=== PATIENT | male | born 1940 | race Caucasian/White ===

== ENCOUNTER → 2016-08-22 | Outpatient (CLI) | payer MEDICARE, OTHER ==
--- NOTE | 2016-08-23 13:56 | RAD ---
History: Renal stone. KUB: Single supine view is obtained. This study is correlated with a KUB from 01/2016. Fragmented 13 mm calcification is seen overlying the mid upper pole of the left kidney. Suspected vascular calcifications are seen overlying the right renal outline. No calculi are shown along the expected course of the ureters. Faint radiopacity overlying the right hemisacrum may be vascular. Directed ultrasound can be obtained if obstruction is questioned clinically. The patient is osteopenic. Bowel gas pattern is normal. IMPRESSION: Fragmented calcifications, 13 mm transverse diameter overlie the midportion of the left kidney and may represent a left renal stone. Directed ultrasound can be obtained if obstruction is questioned. Electronically signed by: Jessica Olivares MD 08/23/2016 1:55 PM CDT
== END ==
LOC: LAB.O 15:04
PROVIDERS: ATTEND Urology
DX: N20.0 Calculus of kidney (principal); R97.20 Elevated prostate specific antigen [PSA]; E29.1 Testicular hypofunction

== ENCOUNTER → 2017-01-16 | Outpatient (CLI) | payer MEDICARE, OTHER | LOC: GMAB 11:26 | PROVIDERS: ATTEND Family Medicine | DX: I10 Essential (primary) hypertension (principal); Z12.5 Encounter for screening for malignant neoplasm of prostate | CPT/HCPCS: 84443; G0103 ==

== ENCOUNTER → 2017-03-05 | Outpatient (CLI) | payer MEDICARE, OTHER ==
--- NOTE | 2017-03-05 12:19 | US ---
EXAM DESCRIPTION: Carotid Duplex: Ultrasound. CLINICAL HISTORY: CAROTID ARTERY STENOSIS COMPARISON: None. TECHNIQUE: Transcutaneous scanning utilizing 2-dimensional and Doppler modes to evaluate the bilateral carotid systems and vertebral arteries. Percentage of diameter of stenosis or no stenosis recorded will be based upon NASCET criteria. FINDINGS: Peak systolic/end diastolic (CM-Sec) CCA Right 82/16 Left 72/13. ICA Right proximal 46/15, mid 49/12. Left proximal 54/13, Distal 50/21. Vertebral Right 41/14 Left 28/8. ECA (PS Only) Right 61 left 58. ICA/CCA peak systolic ratio: Right 0.6 Left 0.7 ICA/CCA end diastolic ratio: Right 0.8 Left 1.0 Vertebral arteries: antegrade flow. Comments: Atherosclerotic calcifications in the bilateral carotid bifurcations. Spectral broadening in the mid and distal right ICA. Area stenosis CCA bulb 32%; diameter stenosis 35%. Area stenosis of proximal right ICA 20%; diameter stenosis 25%. Area stenosis of left CCA bulb 34%; diameter stenosis 43%. IMPRESSION: 1. Doppler evaluation of the bilateral carotid systems and vertebral arteries shows no hemodynamically significant stenoses. 2. No significant amount of plaque seen in the carotid arteries bilaterally. Bilateral vertebral arteries showed antegrade-cephalad flow. Electronically signed by: Raymundo Sanderson MD 03/05/2017 12:18 PM CDT
== END | disposition home or self-care (01) ==
LOC: US 10:50
PROVIDERS: ATTEND Family Medicine
DX: I65.23 Occlusion and stenosis of bilateral carotid arteries (principal)

== ENCOUNTER → 2017-03-08 | Outpatient (CLI) | payer MEDICARE, OTHER | LOC: SL 20:30 | PROVIDERS: ATTEND Family Medicine | DX: G47.33 Obstructive sleep apnea (adult) (pediatric) (principal); F51.09 Other insomnia not due to a substance or known physiological condition; G47.69 Other sleep related movement disorders ==

== ENCOUNTER → 2017-08-20 | Outpatient (CLI) | payer MEDICARE, OTHER ==
--- NOTE | 2017-08-20 17:36 | US ---
EXAM DESCRIPTION: Venous,Lower Extremity LT CLINICAL HISTORY: PAIN IN LEFT LEG COMPARISON: None Available. TECHNIQUE: Left lower extremity venous duplex FINDINGS: Doppler evaluation of the left lower extremity deep veins was performed. Normal color flow is seen in the common femoral, superficial femoral, profunda femoral and greater saphenous veins. Normal flow is seen in the popliteal vein and veins below the knee in the calf. Normal deep venous compressibility and flow augmentation. Superficial vein of the anterior left calf appears to be thrombosed (varicose vein) in the subcutaneous fat. Patient is apparently tender in this area. IMPRESSION: Thrombosed superficial varicose vein of the anterior left lower leg. Negative for evidence of deep venous thrombosis on left lower extremity venous Doppler sonogram. Electronically signed by: Marcelo Crabtree MD 08/20/2017 5:35 PM CDT
== END | disposition home or self-care (01) ==
LOC: US 11:06
PROVIDERS: ATTEND Family Medicine
DX: M79.605 Pain in left leg (principal)

== ENCOUNTER → 2018-02-20 | Outpatient (CLI) | payer MEDICARE, OTHER | LOC: GMAE 11:59 | PROVIDERS: ATTEND Family Medicine | DX: I10 Essential (primary) hypertension (principal) ==

== ENCOUNTER → 2019-03-25 | Outpatient (CLI) | payer MEDICARE, OTHER | LOC: GMAE 10:44 | PROVIDERS: ATTEND Family Medicine | DX: Z12.5 Encounter for screening for malignant neoplasm of prostate (principal); I10 Essential (primary) hypertension | CPT/HCPCS: 84443; G0103 ==

== ENCOUNTER → 2019-06-24 | Outpatient (CLI) | payer MEDICARE, OTHER ==
--- NOTE | 2019-06-25 08:35 | RAD ---
Procedure: XR ABDOMEN 1 VIEW (KUB) Exam Date: 06/24/2019 Ordering Provider: WANDA NUNEZ Clinical Indication: KIDNEY STONE Comparison: 08/22/2016 Findings: Clustered calcifications projecting over the interpolar left kidney measuring 12 mm. Pelvic phleboliths. No other urinary tract calcifications identified. Nonobstructive bowel gas pattern. There is no acute osseous abnormality. Impression: 1. Left nephrolithiasis similar to prior. Electronically signed by: Tyson Fairchild MD 06/25/2019 8:33 AM [facility]
== END ==
LOC: RAD 13:38
PROVIDERS: ATTEND Urology
DX: N20.0 Calculus of kidney (principal)

== ENCOUNTER 2019-11-09 11:07 | Emergency (ER) | payer MEDICARE, OTHER ==
[2019-11-09] MEDS ORDERED: SODIUM CHLORIDE 0.9% (FLUSH) 10 ML SYG IV PRN (11:17)
[2019-11-09] MEDS ORDERED: ASPIRIN TABLET 325 MG TAB PO ONE (11:17)
--- NOTE | 2019-11-09 11:42 | ED.PDOC ---
History of Present Illness - General Chief Complaint: Neuro Symptoms/Deficits Stated Complaint: slurred speech and left arm numbness Time Seen by Provider: 11/09/19 11:17 Source: patient, RN notes reviewed, Vital Signs reviewed Exam Limitations: no limitations - History of Present Illness Initial Comments: Patient is a 79-year-old white male who presents with complaints of slurred speech and left arm numbness. This started approximately 1 hour prior to arrival. Patient states that the left arm numbness has resolved and the slurred speech is improving. Patient denies any other symptoms at this time. Patient has a history of hypertension. He denies smoking, drinking or using any drugs. Timing/Duration: 1 hour Severity: moderate Improving Factors: nothing Worsening Factors: nothing Associated Symptoms: slurred speech Allergies/Adverse Reactions: Allergies NO KNOWN ALLERGY Allergy (Verified 11/09/19 12:09) Review of Systems - Review of Systems Constitutional: States: no symptoms reported, see HPI. Denies: chills, fever, malaise, weakness EENTM: States: no symptoms reported. Denies: eye pain, blurred vision, double vision Respiratory: States: no symptoms reported. Denies: cough, short of breath, stridor, wheezing Cardiology: States: no symptoms reported. Denies: chest pain, palpitations, syncope Gastrointestinal/Abdominal: States: no symptoms reported. Denies: abdominal pain, diarrhea, nausea, vomiting Genitourinary: States: no symptoms reported. Denies: discharge, frequency, hematuria Musculoskeletal: States: no symptoms reported. Denies: back pain, joint pain, joint swelling Skin: States: no symptoms reported. Denies: change in color, dryness, rash Neurological: States: see HPI, paresthesia, tingling, other - Slurred speech. Denies: headache Endocrine: States: no symptoms reported Hematologic/Lymphatic: States: no symptoms reported All other Systems: Reviewed and Negative Family Medical History - Family History Mother Family History: Unknown Physical Exam - Physical Exam General Appearance: Alert, Comfortable, Well Developed, Well Groomed, Well Hydrated, Well Nourished Eye Exam: bilateral normal ENT Exam: normal ENT inspection - Except for mild slurred speech, hearing grossly normal, pharynx normal Neck: non-tender, full range of motion, supple Respiratory: chest non-tender, lungs clear, normal breath sounds, no respiratory distress, no accessory muscle use Cardiovascular/Chest: normal peripheral pulses, regular rate, rhythm, no edema, no gallop, no JVD, no murmur, bradycardia Peripheral Pulses: radial,right: 2+, radial,left: 2+ Gastrointestinal/Abdominal: normal bowel sounds, non tender, soft, no organomegaly Back Exam: normal inspection, no CVA tenderness, no vertebral tenderness Extremities Exam: non-tender, normal range of motion, no evidence of injury Mental Status: alert, 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 11/09/19 12:16 Patient with strokelike symptoms. NIH of 3. This is markedly improved since here. He no longer has the left arm numbness. His dysarthria has improved. I discussed with the patient and his need for admission for further evaluation for stroke. Patient is still within the window for TPA, but, his symptoms are rapidly improving and I would not recommend TPA at this time. I did discuss this with Dr. Mauricio at [facility], and he does not recommend TPA but accepts the patient in transfer. I discussed this patient with the ED doctor at [facility] and he accepts the patient to the ED for further evaluation and treatment. Plan on transfer by air EMS at this time. I have discussed this plan of care with the patient and his and they agree. Melvin Posey M.D. #[id number] - Results/Orders Results/Orders: PROVIDED CLINICAL HISTORY/REASON FOR EXAM: left arm numbness and slurred speech TECHNIQUE: Volumetric CT data of the brain was obtained without intravenous contrast. This exam was performed according to our departmental dose- optimization program, which includes automated exposure control, adjustment of the mA and/or kV according to patient size and/or use of iterative reconstruction technique. COMPARISON: None available. FINDINGS: Age-related volume loss and chronic small vessel ischemic change. Septum pellucidum and third ventricle are midline. No acute infarction is evident by CT. No acute hemorrhage is present. No mass or mass effect is present. The calvaria and soft tissues are unremarkable. The visualized paranasal sinuses are unremarkable. IMPRESSION: No acute intracranial abnormalities. Electronically signed by: Zen Simon MD 11/09/2019 11:50 AM EXAM DESCRIPTION: Chest,1 View CLINICAL HISTORY: numbness and slurred speech COMPARISON: None Available. TECHNIQUE: One view radiograph of the chest FINDINGS: Cardiac silhouette shows normal heart size. Pulmonary vascularity is within normal limits. Lungs show no confluent infiltrates. No pleural effusion. No pneumothorax. No acute osseous abnormality. IMPRESSION: No acute cardiopulmonary process. Electronically signed by: Ramon Newman MD 11/09/2019 11: 48 AM CDT 11/09/19 11:17 IV Care:Saline Lock per Protoc QSHIFT Telemetry .ONCE Sodium Chloride 0.9% (Flush) [Saline Flush Syringe] 10 ml IV PRN PRN 11/09/19 11:30 EKG STAT Laboratory Results - last 24 hr 11/09/19 11/09/19 11/09/19 11:00 11:00 11:00 WBC 3.9 L RBC 3.82 L Hgb 12.1 L Hct 35.5 L MCV 92.9 MCH 31.7 H MCHC 34.1 RDW 13.5 Plt Count 138 MPV 8.8 Absolute Neuts (auto) 2.90 Absolute Lymphs (auto) 0.50 L Absolute Monos (auto) 0.40 Absolute Eos (auto) 0.00 Absolute Basos (auto) 0.00 Neutrophils % 74.3 Lymphocytes % 13.3 L Monocytes % 11.0 H Eosinophils % 1.0 Basophils % 0.4 PT 10.0 INR 1.01 PTT (SP) 24.2 Sodium 136 Potassium 4.0 Chloride 104 Carbon Dioxide 26 Anion Gap 10.0 L BUN 18 Creatinine 1.13 BUN/Creatinine Ratio 15.9 POC Glucose Random Glucose 88 Serum Osmolality 273.3 L Calcium 8.6 Total Bilirubin 0.7 AST 16 ALT 12 Alkaline Phosphatase 67 Creatine Kinase 90 CK-MB (CK-2) 3.2 CK-MB (CK-2) % Not Reportable Troponin I < 0.02 Serum Total Protein 6.5 Albumin 3.8 Globulin 2.7 Albumin/Globulin Ratio 1.4 11/09/19 11:20 WBC RBC Hgb Hct MCV MCH MCHC RDW Plt Count MPV Absolute Neuts (auto) Absolute Lymphs (auto) Absolute Monos (auto) Absolute Eos (auto) Absolute Basos (auto) Neutrophils % Lymphocytes % Monocytes % Eosinophils % Basophils % PT INR PTT (SP) Sodium Potassium Chloride Carbon Dioxide Anion Gap BUN Creatinine BUN/Creatinine Ratio POC Glucose 89 Random Glucose Serum Osmolality Calcium Total Bilirubin AST ALT Alkaline Phosphatase Creatine Kinase CK-MB (CK-2) CK-MB (CK-2) % Troponin I Serum Total Protein Albumin Globulin Albumin/Globulin Ratio Vital Signs 11/09/19 11:10 Temperature 97.3 F L Pulse Rate [ 53 L brachial] Respiratory 18 Rate Blood Pressure 160/85 [Left Arm] O2 Sat by Pulse 98 Oximetry Stroke Information - Onset of Symptoms Symptoms of Stroke: Numbness Stroke Onset of Symptoms Date: 11/09/19 Stroke Onset of Symptoms Time: 10:45 - Contraindications Antithrombotic Contraindication: Treatment not indicated - Patient is rapidly improving symptoms and a very low NIH stroke score which does not dictate TPA at this time. t-PA Contraindication: Drug Tx Not Indicated Departure - Departure Clinical Impression: CVA (cerebral vascular accident) Qualifiers: CVA mechanism: unspecified Qualified Code(s): I63.9 - Cerebral infarction, unspecified Time of Disposition: 12:19 Disposition: Transfer to Hospital Condition: Fair Departure Forms: ED Discharge - Pt. Copy, Patient Portal Self Enrollment Referrals: José Medina MD [Active Staff] - 1-2 Weeks Critical Care Note - Critical Care Note Total Time (mins): 45 Transfer to Outside Facility - Transfer Information Decision to Transfer Date: 11/09/19 Decision to Transfer Time: 11:45 Reason for Transfer: required specialist not available Accepting Facility: [facility]
--- NOTE | 2019-11-09 11:50 | RAD ---
EXAM DESCRIPTION: Chest,1 View CLINICAL HISTORY: numbness and slurred speech COMPARISON: None Available. TECHNIQUE: One view radiograph of the chest FINDINGS: Cardiac silhouette shows normal heart size. Pulmonary vascularity is within normal limits. Lungs show no confluent infiltrates. No pleural effusion. No pneumothorax. No acute osseous abnormality. IMPRESSION: No acute cardiopulmonary process. Electronically signed by: Ramon Newman MD 11/09/2019 11:48 AM CDT
--- NOTE | 2019-11-09 11:51 | CT ---
PROVIDED CLINICAL HISTORY/REASON FOR EXAM: left arm numbness and slurred speech TECHNIQUE: Volumetric CT data of the brain was obtained without intravenous contrast. This exam was performed according to our departmental dose-optimization program, which includes automated exposure control, adjustment of the mA and/or kV according to patient size and/or use of iterative reconstruction technique. COMPARISON: None available. FINDINGS: Age-related volume loss and chronic small vessel ischemic change. Septum pellucidum and third ventricle are midline. No acute infarction is evident by CT. No acute hemorrhage is present. No mass or mass effect is present. The calvaria and soft tissues are unremarkable. The visualized paranasal sinuses are unremarkable. IMPRESSION: No acute intracranial abnormalities. Electronically signed by: Zen Simon MD 11/09/2019 11:50 AM CDT
[2019-11-09 12:26] VITALS: BP 167/89; TEMP 97.5; O2SAT 95
== END 2019-11-09 13:30 | disposition short-term general hospital (02) ==
LOC: ER 11:07
DX: I63.9 Cerebral infarction, unspecified (principal)
CPT/HCPCS: 36415; 70450; 71045; 80053; 82550; 82553; 82948; 84484; 85025; 85610; 85730; 93005; A4216

== ENCOUNTER → 2020-05-12 | Outpatient (CLI) | payer MEDICARE, OTHER | LOC: GMAE 10:21 | PROVIDERS: ATTEND Family Medicine | DX: Z12.5 Encounter for screening for malignant neoplasm of prostate (principal); I10 Essential (primary) hypertension | CPT/HCPCS: 84443; G0103 ==